=== PATIENT | female | born 1955 | race Two or more races ===

== ENCOUNTER 2019-10-22 11:55 | Outpatient (CLI) | payer OTHER | END 2019-10-22 12:33 | disposition home or self-care (01) | LOC: MAMO-SONO 11:55 | DX: Z12.31 Encounter for screening mammogram for malignant neoplasm of breast (principal); Z87.898 Personal history of other specified conditions; N60.11 Diffuse cystic mastopathy of right breast; N60.12 Diffuse cystic mastopathy of left breast ==

== ENCOUNTER 2019-10-23 07:25 | Outpatient (CLI) | payer OTHER | END 2019-10-23 07:43 | disposition home or self-care (01) | LOC: LAB 07:25 | DX: R76.0 Raised antibody titer (principal); M46.1 Sacroiliitis, not elsewhere classified; E11.9 Type 2 diabetes mellitus without complications ==